=== PATIENT | female | born 1970 | race Caucasian/White ===

== ENCOUNTER → 2021-05-10 | Outpatient (CLI) | payer OTHER ==
[~2021-05-10] MED LIST: AMITRIPTYLINE H75 MG PO; ATIVAN0.5 MG PO; BACLOFEN20 MG PO; BUPRENORPHIN-N1 EACH PO; CATAPRES 0.1MG0.1 MG PO; CEFUROXIME500 MG PO; COMBIVENT RESPIM4 GM INH; ELAVIL 50 MG TA50 MG PO; KEPPRA500 MG PO; LYRICA200 MG PO; MEDROL DOSEPAK 24 MG PO; NICOTINE PATCH1 EACH TOP; OMNICEF 300 MG300 MG PO; PROTONIX 40 MG40 M1 PO; VRAYLAR1.5 MG PO
[2021-05-10 09:02] LABS: HEMOGLOBIN 13.5 gm/dl (12.3-15.3); RED BLOOD COUNT 4.65 M/UL (4.00-5.10); WHITE BLOOD COUNT 8.7 K/UL (4.5-11.0)
== END ==
LOC: NM 08:07
PROVIDERS: Nurse Practitioner Family
DX: T84.84XA Pain due to internal orthopedic prosthetic devices, implants and grafts, initial encounter (principal)
CPT/HCPCS: 36415; 78315; 85027; 85652; 86140; A9503

== ENCOUNTER 2022-03-21 14:43 | Emergency (ER) | payer OTHER ==
[2022-03-21 17:20] LABS: RED BLOOD COUNT 4.79 M/UL (4.00-5.10); WHITE BLOOD COUNT 10.3 K/UL (4.5-11.0)
[2022-03-21 17:45] LABS: BUN/CREATININE RATIO 10 (0-10)
== END 2022-03-21 19:30 | disposition home or self-care (01) ==
LOC: ER1 14:43
PROVIDERS: Emergency Medicine
DX: R41.82 Altered mental status, unspecified (principal); Z76.5 Malingerer [conscious simulation]
CPT/HCPCS: 70450; 71045; 80053; 80307; 81001; 83605; 83735; 84100; 85025; 87040; 87086; 93005; 99285; G0480